=== PATIENT | female | born 1980 | race American Indian/Alaskan Native ===

== ENCOUNTER 2016-07-20 19:44 | Emergency (ER) | payer OTHER ==
[2016-07-21] MEDS ORDERED: ULTRAM PO ONE (00:27)
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
--- NOTE | 2016-07-21 01:18 | XRay Report ---
FINAL REPORT EXAM: XR KNEE 3V LT HISTORY: pain TECHNIQUE: Three views of the left knee PRIORS: None. FINDINGS: The bones are normally aligned and mineralized. There is a superior patellar osteophyte. Otherwise, the joint spaces are well-preserved. There is no evidence of acute fracture. The soft tissues are unremarkable. IMPRESSION: Mild osteoarthrosis of patellofemoral joint. Otherwise, normal left knee.
[2016-07-21 01:49] VITALS: BP 113/72
== END 2016-07-21 01:51 | disposition home or self-care (01) ==
LOC: ED 19:44
DX: S86.912A Strain of unspecified muscle(s) and tendon(s) at lower leg level, left leg, initial encounter (principal); S16.1XXA Strain of muscle, fascia and tendon at neck level, initial encounter; V49.49XA Driver injured in collision with other motor vehicles in traffic accident, initial encounter; Y93.89 Activity, other specified; Y99.8 Other external cause status; Y92.89 Other specified places as the place of occurrence of the external cause
CPT/HCPCS: 99283

== ENCOUNTER 2020-07-14 17:49 | Emergency (ER) | payer OTHER ==
[2020-07-14 19:29] VITALS: BP 125/91
[2020-07-14] MEDS ORDERED: traMADol 50 MG TAB PO ONE (19:32)
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
== END 2020-07-14 21:17 | disposition home or self-care (01) ==
LOC: ED 17:49
DX: S16.1XXA Strain of muscle, fascia and tendon at neck level, initial encounter (principal); R07.89 Other chest pain; Z79.899 Other long term (current) drug therapy; V49.69XA Unspecified car occupant injured in collision with other motor vehicles in traffic accident, initial encounter; Y92.410 Unspecified street and highway as the place of occurrence of the external cause; Y93.89 Activity, other specified; Y99.8 Other external cause status
CPT/HCPCS: 71046; 72040